=== PATIENT | male | born 1960 | race Caucasian/White ===

== ENCOUNTER → 2020-07-13 10:27 | Outpatient (BNVA) | payer OTHER, SELFPAY | PROVIDERS: Family Provider Family Medicine; PCP General Practice; Visit Provider Emergency Medicine | DX: Z79.01 Long term (current) use of anticoagulants (principal); Z79.899 Other long term (current) drug therapy; Z95.0 Presence of cardiac pacemaker; I48.91 Unspecified atrial fibrillation; E78.5 Hyperlipidemia, unspecified; I10 Essential (primary) hypertension | CPT/HCPCS: 80162 ==

== ENCOUNTER → 2021-05-08 10:23 | Outpatient (BNVA) | payer OTHER, SELFPAY | PROVIDERS: Family Provider Family Medicine; PCP General Practice; Referring Provider Internal Medicine Interventional Cardiology; Visit Provider Internal Medicine Interventional Cardiology | DX: I48.0 Paroxysmal atrial fibrillation (principal); R00.1 Bradycardia, unspecified; Z79.899 Other long term (current) drug therapy; Z95.0 Presence of cardiac pacemaker | CPT/HCPCS: 80053; 80061 ==

== ENCOUNTER → 2022-06-25 09:42 | Outpatient (BNVA) | payer OTHER, SELFPAY | PROVIDERS: Visit Provider Podiatrist Foot & Ankle Surgery | DX: M92.61 Juvenile osteochondrosis of tarsus, right ankle (principal); M92.62 Juvenile osteochondrosis of tarsus, left ankle; M76.62 Achilles tendinitis, left leg; M24.572 Contracture, left ankle | CPT/HCPCS: 73630 ==

== ENCOUNTER 2022-06-25 13:29 | Outpatient (CLI) | payer OTHER, SELFPAY | END 2022-06-25 13:30 | disposition home or self-care (01) | LOC: SPT 13:30 | PROVIDERS: Visit Provider Podiatrist Foot & Ankle Surgery | DX: M79.673 Pain in unspecified foot (principal); M92.61 Juvenile osteochondrosis of tarsus, right ankle; M92.62 Juvenile osteochondrosis of tarsus, left ankle | CPT/HCPCS: 97760; L4397 ==

== ENCOUNTER 2022-09-09 06:00 | Outpatient (RCR) | payer OTHER, SELFPAY | END 2022-10-05 23:59 | disposition home or self-care (01) | LOC: MPT 06:00 | PROVIDERS: Visit Provider Podiatrist Foot & Ankle Surgery | DX: M76.62 Achilles tendinitis, left leg (principal) | CPT/HCPCS: 97033; 97140; 97161 ==

== ENCOUNTER 2022-10-06 06:00 | Outpatient (RCR) | payer OTHER, SELFPAY | END 2022-10-22 16:07 | disposition home or self-care (01) | LOC: MPT 06:00 | PROVIDERS: Visit Provider Podiatrist Foot & Ankle Surgery | DX: M76.62 Achilles tendinitis, left leg (principal) | CPT/HCPCS: 97033; 97110; 97140 ==

== ENCOUNTER → 2023-07-25 09:41 | Outpatient (BNVA) | payer OTHER, SELFPAY | PROVIDERS: Referring Provider Nurse Practitioner; Visit Provider Nurse Practitioner | DX: M25.511 Pain in right shoulder (principal) | CPT/HCPCS: 73030 ==